=== PATIENT | female | born 1960 | race Caucasian/White ===

== ENCOUNTER → 2022-05-30 | Day surgery (SDC) | payer OTHER ==
[~2022-05-30] MED LIST: BENADRYL25 M1 PO; CEFTRIAXONE 1 GM VIAL ONE; DESFLURANE 240 ML BTL INH ONE; IOPAMIDOL 300MG/ML 50ML INFUS..BTL IV ONE; IOPAMIDOL 610MG/1ML 300 MG/ML VIAL IV ONE; KETOROLAC TROMETHAMINE 30 MG/ML VIAL IV ONE; LIDOCAINE HCL 2% LOCAL INJ 5 ML SDV VIAL INJ ONE; LISINOPRIL10 MG PO; METOPROLOL TART50 MG PO; ONDANSETRON HCL INJ 2MG/ML 2ML 2 MG/ML VIAL IV ONE; POVIDONE IODINE 0.05% 0.05 % ML PO ONE; PROPOFOL IV EMULSION 10 MG/ML 20 ML VIAL IV ONE; TYLENOL325 MG PO
[2022-05-30 09:30] VITALS: BP 141/71
== END | disposition home or self-care (01) ==
LOC: OR 05:42
PROVIDERS: ATTEND Urology
DX: N20.0 Calculus of kidney (principal); I10 Essential (primary) hypertension; E78.5 Hyperlipidemia, unspecified; Z01.810 Encounter for preprocedural cardiovascular examination; Z01.818 Encounter for other preprocedural examination; Z79.899 Other long term (current) drug therapy
CPT/HCPCS: 52005; 74018 ×2; 93005; C1758; C1769; J0696; J1885; J2001; J2405; J2704; Q9967